=== PATIENT | female | born 1970 | race Asian ===

== ENCOUNTER 2020-08-15 23:34 | Emergency (ER) | payer OTHER, SELFPAY ==
[~2020-08-15] VITALS: Ht 154.9 cm; Wt 56.7 kg
[2020-08-15 23:48] VITALS: BP 186/125
--- NOTE | 2020-08-15 23:48 | NUR ---
C/O HIGH BLOOD PRESSURE X 3- 4HRS. +DIZZINESS. NO LANCE. ALSO C/O SOB. FAST NEG. +NAUSEA. DENIES ANY CP, BLURRY VISION. A7O X4. STEADY GAIT. EQUAL BILAT ARM STRENGTH. RX: LOSARTAN 100MG, HYDROCHLOROTHIAZIDE 25MG, AMLODIPINE 5MG. NKDA. PMH: HTN
--- NOTE | 2020-08-15 23:50 | NUR ---
SEEN AND EXAMINED BY HARITHA WITH ORDERS AND CARRIED OUT
[2020-08-16] MEDS ORDERED: ENALAPRIL 10 MG TAB PO ONE
[2020-08-16] MEDS ORDERED: METOPROLOL SUCCINATE 50 MG TABER PO ONE (01:00)
--- NOTE | 2020-08-16 01:03 | NUR ---
RECHECKED BP. BP 185/113, ERMD MADE AWARE.
--- NOTE | 2020-08-16 02:34 | NUR ---
ERMD MADE AWARE OF BP 161/100. PER ERMD PT TO FOLLOW UP WITH PRIMARY CARE [facility]YSCII[facility].
[2020-08-16 02:40] VITALS: BP 161/100
== END 2020-08-16 02:40 | disposition home or self-care (01) ==
LOC: MED 23:34
DX: I10 Essential (primary) hypertension (principal); R11.0 Nausea; R06.02 Shortness of breath
CPT/HCPCS: 81002; 81025; 99283